=== PATIENT | male | born 1965 | race African-American/Black ===

== ENCOUNTER 2022-03-17 00:40 | Emergency (ER) | payer BC ==
[~2022-03-17] VITALS: Ht 165.1 cm; Wt 90.0 kg
[2022-03-17 00:47] VITALS: BP 187/91
[2022-03-17] MEDS ORDERED: IBUP-2029 MT (02:09)
[2022-03-17] MEDS ORDERED: PENI500T MT (02:09)
[2022-03-17] MEDS ORDERED: KETOROLAC 60MG/2ML VIAL IM ONE (02:15)
[2022-03-17] MEDS ORDERED: PENICILLIN V POTASSIUM 250MG TABLET PO SCH (06:00)
== END 2022-03-17 02:50 | disposition home or self-care (01) ==
LOC: ER 00:40
DX: K04.7 Periapical abscess without sinus (principal); H92.02 Otalgia, left ear; E11.9 Type 2 diabetes mellitus without complications
CPT/HCPCS: 96372; 99283; J1885; Z7610